=== PATIENT | male | born 1960 | race Caucasian/White ===

== ENCOUNTER 2020-02-18 07:15 | Outpatient (CLI) | payer BC, SELFPAY ==
[2020-02-18 07:59] LABS: Hemoglobin A1C 7.3 % (<5.7)
[2020-02-18 08:00] LABS: Alanine Aminotransferase 24 U/L (4-50); Albumin Level 4.2 g/dL (3.5-5.1); Alkaline Phosphatase 123 U/L (38-126); Anion Gap 7 mmol/L (8-16); Aspartate Amino Transferase 20 U/L (17-59); Bilirubin,Total 0.7 mg/dL (0.2-1.3); Blood Urea Nitrogen 18 mg/dL (9-20); Calcium 8.9 mg/dL (8.4-10.2); Carbon Dioxide 25 mmol/L (22-30); Chloride 106 mmol/L (98-107); Cholesterol 137 mg/dL (0-200); Estimated Glomerular Filt Rate > 60; Glucose 183 mg/dL (75-110); HDL Direct 38 mg/dL; Potassium 4.6 mmol/L (3.4-5.0); Sodium 138 mmol/L (137-145); Triglycerides 182 mg/dL (<150)
[2020-02-18 08:11] LABS: LDL Cholesterol Direct 77 mg/dL
[2020-02-18 08:16] LABS: Creatinine Urine 54.8 mg/dL
[2020-02-18 08:31] LABS: Prostate Specific Antigen 0.2 ng/mL (< OR = 4.0)
[2020-02-18 09:14] LABS: Microalbumin Urine Random > 1140.0 mg/L (0-16.7)
== END 2020-02-18 07:16 | disposition home or self-care (01) ==
PROVIDERS: PCP Internal Medicine; Visit Provider Internal Medicine
DX: E78.5 Hyperlipidemia, unspecified (principal); I10 Essential (primary) hypertension; Z79.899 Other long term (current) drug therapy; Z12.5 Encounter for screening for malignant neoplasm of prostate; E11.9 Type 2 diabetes mellitus without complications
CPT/HCPCS: 36415; 80053; 80061; 82043; 83036; 84153

== ENCOUNTER 2020-05-22 12:34 | Emergency (ER) | payer BC, SELFPAY ==
[2020-05-22 12:38] VITALS: BP 151/81; PULSE 87; RESP 16; TEMP 36; O2SAT 100
--- NOTE | 2020-05-22 12:46 | ED.BACK ---
HPI - Back Pain/Injury General Chief Complaint: Back Pain/Injury Stated Complaint: lower back pain Time Seen by Provider: 05/22/20 12:45 History of Present Illness HPI Narrative: 59 yo male w/ htn, hyperlipidemia, DM presents to the ED with thoracic back pain. He has had back pain for the past few days. Started after doing some heavy lifting at work. Worse this morning. Tried tylenol without resolution. No weakness, numbness, fever, trauma, dysuria, hematuria. Related Data Home Medications Medication Instructions Recorded Confirmed atorvastatin 80 mg tablet 80 mg PO DAILY 07/03/19 02/19/20 empagliflozin 12.5 mg-metformin ER 1 tablet PO DAILY 07/03/19 02/19/20 1,000 mg tablet,extended rel 24 hr Allergies Allergy/AdvReac Type Severity Reaction Status Date / Time No Known Allergies Allergy Verified 02/19/20 07:46 Review of Systems Review of Systems: All systems reviewed & are unremarkable except as noted in HPI and below Constitutional: Constitutional: Denies chills and Denies fever(s) Cardiovascular: Cardiovascular: Denies chest pain Respiratory: Respiratory: Denies dyspnea Gastrointestinal: Gastrointestinal: Denies abdominal pain, Denies nausea and Denies vomiting Genitourinary: Genitourinary: Denies hematuria, Denies dysuria and Denies urinary frequency Musculoskeletal: Musculoskeletal: Reports back pain Neurologic: Denies numbness and Denies weakness PMFSH Past Medical History Medical History ASHD (arteriosclerotic heart disease) Benign essential hypertension Tinea pedis Type 2 diabetes mellitus with hyperglycemia, without long-term current use of insulin Surgical History Surgical History History of fusion of cervical spine Family History Family History Mother Family history of throat cancer Family history of chronic obstructive pulmonary disease Family history of coronary artery disease Father Family history of coronary artery disease Other Diabetes mellitus Family history of emphysema Social History Social History Smoking status: Never smoker Alcohol intake: current Gender identity (if verbalized by the patient): Male Exam Const: General: no acute distress and alert Nutritional Appearance: well nourished Orientation/consciousness: patient oriented x3 HENMT: Head: normal to inspection Chest: Chest palpation & inspection: tenderness rib (posterior and lateral bilaterally) Resp: Effort & Inspection: normal respiratory effort Auscultation: clear to auscultation bilaterally, no rales, no rhonchi and no wheezes Cardio: Rate: regular rate Rhythm: regular rhythm GI: GI Palp: Yes Soft to palpation and No Tenderness to palpation present (GI) Back/Spine/Pelvis: Other: No midline tenderness Skin: General skin exam: normal color Rashes: no rashes Wounds: no wounds Neuro: General: patient oriented x3, moves all extremities, no focal motor deficits and CN's II-XI intact bilaterally Speech: normal speech Gait exam (Neuro): Normal gait present Extrem: General: normal to inspection Psych: Affect: normal affect Attitude: cooperative Course Vital Signs Vital signs: Vital Signs Temperature 36.0 C L 05/22/20 12:38 Pulse Rate 87 05/22/20 12:38 Respiratory Rate 16 05/22/20 12:38 Blood Pressure 151/81 H 05/22/20 12:38 Pulse Oximetry 100 05/22/20 12:38 Temperature 36.0 C L 05/22/20 12:38 Pulse Rate 78 05/22/20 14:47 Respiratory Rate 16 05/22/20 14:47 Blood Pressure 110/64 05/22/20 14:47 Pulse Oximetry 97 05/22/20 14:47 MDM - Back Pain/Injury MDM Narrative Medical decision making narrative: No red flag symptoms or risk factors requiring emergent imaging. Feeling better after treatment. Differential Diagnosi
[2020-05-22 13:00] VITALS: BP 117/87; PULSE 87; RESP 18; O2SAT 99
[2020-05-22] MEDS: diazePAM INJ (*CRX) 10 MG/2 ML SYRINGE 5 MG IM (13:06)
[2020-05-22] MEDS: KETOROLAC (*BKC) 60 MG/2 ML VIAL IM (13:06)
[2020-05-22 14:00] VITALS: BP 110/64; PULSE 77; RESP 16; O2SAT 99
[2020-05-22 14:47] VITALS: BP 110/64; PULSE 78; RESP 16; O2SAT 97
== END 2020-05-22 14:47 | disposition home or self-care (01) ==
PROVIDERS: Emergency Provider Emergency Medicine; PCP Internal Medicine
DX: M54.6 Pain in thoracic spine (principal); I25.10 Atherosclerotic heart disease of native coronary artery without angina pectoris; I10 Essential (primary) hypertension; E11.9 Type 2 diabetes mellitus without complications; Z98.1 Arthrodesis status; E78.5 Hyperlipidemia, unspecified; Z79.84 Long term (current) use of oral hypoglycemic drugs
CPT/HCPCS: 96372; 99284; J1885; J3360

== ENCOUNTER 2020-07-06 08:59 | Outpatient (CLI) | payer BC, SELFPAY ==
[2020-07-06 09:37] LABS: Alanine Aminotransferase 38 U/L (4-50); Albumin Level 4.4 g/dL (3.5-5.1); Alkaline Phosphatase 92 U/L (38-126); Anion Gap 7 mmol/L (8-16); Aspartate Amino Transferase 34 U/L (17-59); Blood Urea Nitrogen 19 mg/dL (9-20); Calcium 9.6 mg/dL (8.4-10.2); Carbon Dioxide 30 mmol/L (22-30); Chloride 102 mmol/L (98-107); Cholesterol 157 mg/dL (0-200); Estimated Glomerular Filt Rate > 60; Glucose 159 mg/dL (75-110); HDL Direct 42 mg/dL; Potassium 4.6 mmol/L (3.4-5.0); Sodium 139 mmol/L (137-145); Triglycerides 181 mg/dL (<150)
[2020-07-06 09:39] LABS: Hemoglobin A1C 7.5 % (<5.7)
[2020-07-06 09:50] LABS: Creatinine Urine 81.8 mg/dL; LDL Cholesterol Direct 92 mg/dL
[2020-07-06 11:33] LABS: MALB Creatinine Ratio 1159.9 mg/g (0-30); Microalbumin Urine Random 948.8 mg/L (0-16.7)
== END 2020-07-06 09:00 | disposition home or self-care (01) ==
PROVIDERS: PCP Internal Medicine; Visit Provider Nurse Practitioner
DX: E11.65 Type 2 diabetes mellitus with hyperglycemia (principal); E78.2 Mixed hyperlipidemia
CPT/HCPCS: 36415; 80053; 80061; 82043; 83036

== ENCOUNTER 2020-11-06 07:07 | Outpatient (CLI) | payer BC, SELFPAY ==
[2020-11-06 07:45] LABS: Alanine Aminotransferase 23 U/L (4-50); Albumin Level 4.3 g/dL (3.5-5.1); Alkaline Phosphatase 115 U/L (38-126); Anion Gap 7 mmol/L (8-16); Aspartate Amino Transferase 22 U/L (17-59); Bilirubin,Total 0.9 mg/dL (0.2-1.3); Blood Urea Nitrogen 17 mg/dL (9-20); Calcium 9.2 mg/dL (8.4-10.2); Carbon Dioxide 27 mmol/L (22-30); Chloride 104 mmol/L (98-107); Cholesterol 120 mg/dL (0-200); Estimated Glomerular Filt Rate > 60; Glucose 190 mg/dL (75-110); HDL Direct 43 mg/dL; Potassium 4.8 mmol/L (3.4-5.0); Sodium 138 mmol/L (137-145); Triglycerides 109 mg/dL (<150)
[2020-11-06 07:55] LABS: Hemoglobin A1C 7.6 % (<5.7)
[2020-11-06 07:56] LABS: LDL Cholesterol Direct 63 mg/dL
[2020-11-06 08:11] LABS: Prostate Specific Antigen 0.2 ng/mL (< OR = 4.0)
== END 2020-11-06 07:08 | disposition home or self-care (01) ==
LOC: ANHLAB 07:09
PROVIDERS: PCP Internal Medicine; Visit Provider Internal Medicine
DX: E11.65 Type 2 diabetes mellitus with hyperglycemia (principal); I10 Essential (primary) hypertension; E78.5 Hyperlipidemia, unspecified; Z79.899 Other long term (current) drug therapy; Z12.5 Encounter for screening for malignant neoplasm of prostate
CPT/HCPCS: 36415; 80053; 80061; 83036; 84153; G0103

== ENCOUNTER 2021-05-09 06:52 | Outpatient (CLI) | payer OTHER, SELFPAY ==
[2021-05-09 08:14] LABS: Alanine Aminotransferase 25 U/L (4-50); Albumin Level 4.8 g/dL (3.5-5.1); Alkaline Phosphatase 135 U/L (38-126); Anion Gap 10 mmol/L (8-16); Aspartate Amino Transferase 19 U/L (17-59); Bilirubin,Total 0.8 mg/dL (0.2-1.3); Blood Urea Nitrogen 21 mg/dL (9-20); Calcium 9.9 mg/dL (8.4-10.2); Carbon Dioxide 28 mmol/L (22-30); Chloride 101 mmol/L (98-107); Cholesterol 134 mg/dL (0-200); Estimated Glomerular Filt Rate > 60; Glucose 247 mg/dL (65-110); HDL Direct 43 mg/dL; Potassium 4.6 mmol/L (3.4-5.0); Sodium 139 mmol/L (137-145); Triglycerides 114 mg/dL (<150)
[2021-05-09 08:26] LABS: LDL Cholesterol Direct 73 mg/dL
[2021-05-09 10:49] LABS: Hemoglobin A1C 7.7 % (<5.7)
== END 2021-05-09 06:53 | disposition home or self-care (01) ==
PROVIDERS: PCP Internal Medicine; Visit Provider Nurse Practitioner
DX: E78.5 Hyperlipidemia, unspecified (principal); E11.9 Type 2 diabetes mellitus without complications
CPT/HCPCS: 36415; 80053; 80061; 83036

== ENCOUNTER → 2021-07-07 02:23 | Outpatient (CLI) | payer OTHER, SELFPAY ==
[2021-07-08 14:05] LABS: SARS-CoV-2 RNA PCR Negative
== END ==
PROVIDERS: PCP Internal Medicine; Visit Provider Nurse Practitioner
DX: R68.89 Other general symptoms and signs (principal); Z20.822 Contact with and (suspected) exposure to COVID-19
CPT/HCPCS: C9803; U0003; U0005

== ENCOUNTER 2022-01-21 06:34 | Emergency (ER) | payer OTHER, SELFPAY ==
--- NOTE | ~2022-01-21 | XR_ITS ---
XR wrist RT min 3V DATE: 01/21/2022 08:01 INDICATION: Rolled wrist 2 days ago. Pain. TECHNIQUE: 4 views COMPARISON: None FINDINGS: No fracture or dislocation, periosteal reaction or bone destruction. Arterial calcification is noted in the distal forearm. IMPRESSION: No fracture or dislocation Reviewed, dictated and finalized at location A. IMPRESSION: No fracture or dislocation
--- NOTE | ~2022-01-21 | XR_ITS ---
XR hand RT min 3V DATE: 01/21/2022 08:00 INDICATION: Rolled wrist 2 days ago; right wrist and hand pain TECHNIQUE: 3 views COMPARISON: None FINDINGS: No fracture or dislocation, periosteal reaction or bone destruction. Mild osteophyte is at the first carpometacarpal and second third metacarpophalangeal joints. No erosi ve change. Arterial calcifications noted in the distal forearm. IMPRESSION: No fracture or dislocation Mild osteoarthritis Reviewed, dictated and finalized at location A.
[2022-01-21 06:35] VITALS: BP 177/92; PULSE 69; RESP 16; TEMP 36.6; O2SAT 100
--- NOTE | 2022-01-21 07:11 | PC.NURSE ---
BOR to RN GO
--- NOTE | 2022-01-21 07:51 | ED.GENADULT ---
HPI - General Adult General Chief complaint: Extremity Injury, Upper Stated complaint: rt hand pain Time Seen by Provider: 01/21/22 06:51 History of Present Illness HPI narrative: 61-year-old male presenting to the emergency department for evaluation of right wrist and right hand pain. Patient states on Sunday he was attempting to get off the ground and push himself off the ground using a closed fist of the right hand. Patient states he felt something pop in his hand and wrist. Patient has been taking qint-boj-vseywte medications for this but states that the pain has continued to worsen. Patient denies any other pain or injury. Related Data Allergies Allergy/AdvReac Type Severity Reaction Status Date / Time No Known Allergies Allergy Verified 01/21/22 06:39 Review of Systems Review of Systems: CONSTITUTIONAL: Denies fever, chills, or sweats. EYES: Denies visual changes, redness, or discharge. ENT: Denies rhinorrhea, congestion, sore throat, or otalgia. CARDIOVASCULAR: Denies chest pain, palpitations, or edema. RESPIRATORY: Denies cough or dyspnea. GASTROINTESTINAL: Denies abdominal pain, nausea, vomiting, or diarrhea. GENITOURINARY: Denies dysuria or hematuria. SKIN: Denies rash or itching. MUSCULOSKELETAL: See HPI NEUROLOGIC: Denies headache, numbness, or weakness. PSYCHIATRIC: Denies anxiety or depression. [facility] Past Medical History Medical History ASHD (arteriosclerotic heart disease) Benign essential hypertension Tinea pedis Type 2 diabetes mellitus with hyperglycemia, without long-term current use of insulin Surgical History Surgical History History of fusion of cervical spine Family History Family History (System 07/28/20 @ 14:27 by Yanira Bond) Mother Family history of throat cancer Family history of chronic obstructive pulmonary disease Family history of coronary artery disease Father Family history of coronary artery disease Other Diabetes mellitus Family history of emphysema Social History Social History (Updated 05/19/21 @ 07:25 by Rosalva Palencia CNA) Smoking status: Never smoker Second hand tobacco smoke exposure: No Alcohol intake: current Alcohol use details: Social Substance use: never Substance use type: does not use Gender identity (if verbalized by the patient): Male Exam Narrative: APPEARANCE: Well appearing, no pain, no distress, well-nourished. HEAD: normocephalic, atraumatic. EYES: PERRLA/EOMI, conjunctivae clear. NOSE: Normal no drainage NECK: Supple. No adenopathy, no masses. RESPIRATORY: Airway patent, respirations nonlabored. Clear to auscultation bilaterally, no rales, rhonchi, wheezing. CARDIOVASCULAR: Regular rate and rhythm without murmurs rubs or gallops. ABDOMINAL: Soft, nontender, nondistended, normal bowel sounds MUSCULOSKELETAL: Moves all extremities. Tenderness to right hand/ right wrist. No deformity, no ecchymosis, neurovascular intact NEURO: Alert. Cranial nerves II through XII intact. Grossly intact SKIN: Warm, dry. Normal Color PSYCHIATRIC: Normal affect/mood. Course Vital Signs Vital signs: Vital Signs Temperature 97.8 F 01/21/22 06:35 Pulse Rate 01/21/22 06:35 Respiratory Rate 01/21/22 06:35 Blood Pressure 177/92 H 01/21/22 06:35 Pulse Oximetry 100 01/21/22 06:35 Oxygen Delivery Room Air 01/21/22 06:35 Temperature 97.8 F 01/21/22 06:35 Pulse Rate 01/21/22 06:35 Respiratory Rate 01/21/22 06:35 Blood Pressure 177/92 H 01/21/22 06:35 Pulse Oximetry 100 01/21/22 06:35 Oxygen Delivery Room Air 01/21/22 06:35 Medical Decision Making Vital Signs Vital Signs: Vital Signs Temperature 97.8 F 01/21/22 06:35 Pulse Rate 69 01/21/22 06:35 Respiratory Rate 01/21/22 06:35 Blood Pressure 177/92 H 01/21/22 06:35 Pulse Oximetry 100 01/21/22 06
== END 2022-01-21 09:59 | disposition home or self-care (01) ==
PROVIDERS: Emergency Provider Emergency Medicine; PCP Internal Medicine
DX: S69.91XA Unspecified injury of right wrist, hand and finger(s), initial encounter (principal); I25.10 Atherosclerotic heart disease of native coronary artery without angina pectoris; I10 Essential (primary) hypertension; E11.9 Type 2 diabetes mellitus without complications; M19.041 Primary osteoarthritis, right hand; Z79.82 Long term (current) use of aspirin; Z79.84 Long term (current) use of oral hypoglycemic drugs; X50.9XXA Other and unspecified overexertion or strenuous movements or postures, initial encounter
CPT/HCPCS: 73110; 73130; 99283

== ENCOUNTER 2022-02-15 07:16 | Outpatient (CLI) | payer OTHER, SELFPAY ==
[2022-02-15 08:08] LABS: Hemoglobin A1C 8.5 % (<5.7)
[2022-02-15 08:12] LABS: Alanine Aminotransferase 26 U/L (6-50); Albumin Level 4.2 g/dL (3.5-5.1); Alkaline Phosphatase 126 U/L (38-126); Anion Gap 10 mmol/L (8-16); Aspartate Amino Transferase 20 U/L (17-59); Blood Urea Nitrogen 21 mg/dL (9-20); Calcium 9.1 mg/dL (8.4-10.2); Carbon Dioxide 21 mmol/L (22-30); Chloride 102 mmol/L (98-107); Cholesterol 134 mg/dL (0-200); Estimated Glomerular Filt Rate > 60; Glucose 216 mg/dL (65-110); HDL Direct 38 mg/dL; Potassium 4.8 mmol/L (3.4-5.0); Sodium 133 mmol/L (137-145); Triglycerides 190 mg/dL (<150)
[2022-02-15 08:23] LABS: LDL Cholesterol Direct 63 mg/dL
[2022-02-15 08:36] LABS: Creatinine Urine 53.3 mg/dL
[2022-02-15 08:41] LABS: Prostate Specific Antigen 0.3 ng/mL (< OR = 4.0)
[2022-02-15 09:23] LABS: MALB Creatinine Ratio 818.6 mg/g (0-30); Microalbumin Urine Random 436.3 mg/L (0-16.7)
== END 2022-02-15 07:17 | disposition home or self-care (01) ==
LOC: ANHLAB 07:17
PROVIDERS: PCP Internal Medicine; Visit Provider Internal Medicine
DX: E11.65 Type 2 diabetes mellitus with hyperglycemia (principal); I10 Essential (primary) hypertension; E78.5 Hyperlipidemia, unspecified; Z12.5 Encounter for screening for malignant neoplasm of prostate
CPT/HCPCS: 36415; 80053; 80061; 82043; 83036; 84153; G0103

== ENCOUNTER 2022-02-23 10:33 | Outpatient (CLI) | payer OTHER, SELFPAY ==
--- NOTE | ~2022-02-23 | CT_ITS ---
EXAMINATION: CT abdomen pelvis wo con DATE: 02/23/2022 11:03 INDICATION: Right lower quadrant pain TECHNIQUE: Computed tomography (CT) of the abdomen and pelvis was performed without intravenous contr ast. The dose-length product was 768.61 mGy-cm. Automated exposure control and iterative reconstructi on technique were employed. COMPARISON: None. FINDINGS: There is calcified granuloma left lower lobe. No significant pleural or pericardial effusio n. Heart size normal. No significant vascular abnormality. There is atherosclerosis. No lymphadenopat hy. There are calcified granulomas of the liver. The spleen, pancreas, adrenal glands and kidneys are unr emarkable. No free air or free fluid. Nonobstructive bowel pattern. Normal appendix. Bladder is unrem arkable. No acute osseous abnormality. Mild lumbar spondylosis. IMPRESSION: 1. No acute abdominal abnormality. Reviewed, dictated and finalized at location B.
== END 2022-02-23 10:34 | disposition home or self-care (01) ==
PROVIDERS: PCP Internal Medicine; Visit Provider Internal Medicine
DX: R10.30 Lower abdominal pain, unspecified (principal)
CPT/HCPCS: 74176

== ENCOUNTER 2022-02-28 22:21 | Emergency (ER) | payer OTHER, SELFPAY ==
--- NOTE | ~2022-02-28 | CT_ITS ---
. EXAMINATION: CT thoracic lumbar wo con DATE: 03/01/2022 04:25 INDICATION: Back pain. TECHNIQUE: Computed tomography (CT) of the thoracic and lumbar spine was performed without intravenou s contrast. Automated exposure control and iterative reconstruction technique were employed. The dose -length product was 1591.00 mGy-cm. COMPARISON: None FINDINGS: CT THORACIC SPINE: There is 7 degrees dextrocurvature of thoracic spine. There are changes of anterio r fusion procedure from C5 to C7 with healed interbody bone graft and anterior plate and screws. Ther e is mild chronic anterior wedging of T7 and T12 vertebral bodies. There is severely decreased disc h eight at C7-T1 and mildly decreased disc height at many thoracic levels. There is multilevel mild fac et joint osteoarthritis. On the right, there is severe neural foraminal stenosis at C7-T1 and mild ne ural foraminal stenosis from T7-T8 through T9-T10. On the left, there is mild neural foraminal stenos is at C7-T1, T4-T5, and T9-T10, and moderate neural foraminal stenosis at T10-T11. There is mild cent ral canal stenosis at T7-T8 and T11-T12. CT LUMBAR SPINE: Bone alignment is normal. There is mild chronic anterior wedging of L1 vertebral bod y. There is mildly decreased disc height at L3-L4. The following disc levels are specifically discuss ed: L1-L2: The disc does not extend beyond the endplate margin. There is mild bilateral facet joint osteo arthritis. There is no neural foraminal stenosis. There is no central canal stenosis. L2-L3: There is a left foraminal protrusion. There is mild bilateral facet joint osteoarthritis. Ther e is mild left neural foraminal stenosis. There is no central canal stenosis. L3-L4: The disc is bulging. There is severe bilateral facet joint osteoarthritis. There is mild bilat eral neural foraminal stenosis. There is mild central canal stenosis. L4-L5: The disc is bulging. There is severe bilateral facet joint osteoarthritis. There is mild bilat eral neural foraminal stenosis. There is mild central canal stenosis. L5-S1: The disc is bulging. There is severe right and moderate left facet joint osteoarthritis. There is mild bilateral neural foraminal stenosis. There is no central canal stenosis. IMPRESSION: 1. Severe degenerative disc disease at C7-T1. Mild thoracic and lumbar spondylosis. Reviewed, dictated and finalized at location A. IMPRESSION: 1. Severe degenerative disc disease at C7-T1. Mild thoracic and lumbar spondylo sis.
--- NOTE | ~2022-02-28 | CT_ITS ---
EXAMINATION: CT abdomen pelvis w con DATE: 03/01/2022 04:26 INDICATION: Abdominal pain. Distention. TECHNIQUE: Computed tomography (CT) of the abdomen and pelvis was performed with 100 mL Omnipaque 350 intravenous contrast. Automated exposure control and iterative reconstruction technique were employe d. The dose-length product was 754.40 mGy-cm. COMPARISON: CT abdomen and pelvis 02/23/2022 FINDINGS: The visualized portions of the lung bases demonstrate mild atelectasis. A calcified left tanya ng nodule is consistent with old granulomatous disease. No pleural effusion. The heart size is normal . There are coronary artery calcifications. Median sternotomy wires are noted. Calcifications in the liver consistent with old granulomatous disease. The spleen, pancreas, and adrenal glands are normal. There are cysts in the kidneys measuring up to 12 mm on the left. Bowel malrotation is noted. There are no dilated loops of bowel. The appendix is normal. There are no pathologically enlarged lymph nod es. There is no free intraperitoneal fluid. The bladder is distended. There is mild thoracolumbar spo ndylosis. IMPRESSION: 1. No etiology for the patient's symptoms. Reviewed, dictated and finalized at location A.
[2022-02-28 22:24] VITALS: BP 170/75; PULSE 67; RESP 18; TEMP 36.2; O2SAT 100
[2022-02-28 22:35] LABS: Basophils Percent Auto 0.5 % (0.2-1.2); Eosinophils Absolute Auto 0.3 K/mm3 (0-0.3); Eosinophils Percent Auto 4.6 % (0-4.4); Hematocrit 45.7 % (42.0-52.0); Hemoglobin 15.2 g/dL (14.0-18.0); Immature Granulocyte Absolute 0.06 K/mm3 (0.00-0.031); Lymphocytes Percent Auto 30.9 % (18.3-44.2); Mean Corpuscular HGB Conc 33.3 g/dl (32-36); Mean Corpuscular Hemoglobin 30.5 pg (26-34); Mean Corpuscular Volume 91.6 fl (80-100); Mean Platelet Volume 9.8 fl (7.4-10.4); Monocytes Absolute Auto 0.6 K/mm3 (0.1-0.6); Monocytes Percent Auto 9.1 % (2.6-8.5); Neutrophils Absolute Auto 3.3 K/mm3 (1.3-6.7); Neutrophils Percent Auto 53.9 % (45.5-73.1); Platelet Count Result 144 k/mm3 (150-375); Red Blood Count 4.99 M/mm3 (4.6-6.20); Red Cell Distribution Width 14.1 % (11.5-14.5); White Blood Count 6.2 K/mm3 (4.5-10.0)
[2022-02-28 22:46] LABS: Alanine Aminotransferase 28 U/L (6-50); Albumin Level 4.4 g/dL (3.5-5.1); Alkaline Phosphatase 102 U/L (38-126); Anion Gap 11 mmol/L (8-16); Aspartate Amino Transferase 26 U/L (17-59); Bilirubin,Total 1.2 mg/dL (0.2-1.3); Blood Urea Nitrogen 18 mg/dL (9-20); Calcium 9.5 mg/dL (8.4-10.2); Carbon Dioxide 25 mmol/L (22-30); Chloride 98 mmol/L (98-107); Estimated CRCL calculation 57 ml/min; Estimated Glomerular Filt Rate > 60; Glucose 178 mg/dL (65-110); Lipase 137 U/L (23-300); Potassium 4.5 mmol/L (3.4-5.0); Sodium 134 mmol/L (137-145)
[2022-03-01 02:07] VITALS: BP 126/77; PULSE 69; RESP 18; O2SAT 98
--- NOTE | 2022-03-01 02:15 | ED.BACK ---
HPI - Back Pain/Injury General Chief Complaint: Back Pain/Injury <Roxann Ferrer MD - Last Filed: 03/01/22 06:30> Stated Complaint: back pain <Roxann Ferrer MD - Last Filed: 03/01/22 06:30> Time Seen by Provider: 03/01/22 02:15 <Roxann Ferrer MD - Last Filed: 03/01/22 06:30> Source: patient <Roxann Ferrer MD - Last Filed: 03/01/22 06:30> Mode of arrival: ambulatory <Roxann Ferrer MD - Last Filed: 03/01/22 06:30> Limitations: no limitations <Roxann Ferrer MD - Last Filed: 03/01/22 06:30> History of Present Illness HPI Narrative: Patient is a 61-year-old male with a history of hypertension, hyperlipidemia, diabetes presenting to the emergency department for evaluation of middle back pain, abdominal pain and distention. Pain is described as aching in nature located in the lower abdomen as well as middle back. Patient denies chest pain, cough, shortness of breath. Patient states pain has been present over the past 3 weeks. Patient denies any inciting event, fall or injury. Patient states he was seen by his primary care physician and had recent imaging done which was negative. Patient also reports abdominal pain and distention. Pain is in the right lower abdomen, aching in nature. Patient reports constipation and abdominal distention as well. Patient with negative CT scan on 02/23/2022. <Roxann Ferrer MD - Last Filed: 03/01/22 06:30> Related Data Allergies/Adverse Reactions: Allergies Allergy/AdvReac Type Severity Reaction Status Date / Time No Known Allergies Allergy Verified 03/01/22 02:05 <Roxann Ferrer MD - Last Filed: 03/01/22 06:30> Review of Systems Review of Systems: CONSTITUTIONAL: Denies fever, chills, or sweats. EYES: Denies visual changes, redness, or discharge. ENT: Denies rhinorrhea, congestion, sore throat, or otalgia. CARDIOVASCULAR: Denies chest pain, palpitations, or edema. RESPIRATORY: Denies cough or dyspnea. GASTROINTESTINAL: Patient reports abdominal pain, distention, denies nausea, vomiting, reports constipation GENITOURINARY: Denies dysuria or hematuria. SKIN: Denies rash or itching. MUSCULOSKELETAL: Patient reports middle and lower back pain NEUROLOGIC: Denies headache, numbness, or weakness. 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 EYES: PERRLA and EOMI. ENT: Nares clear, no rhinorrhea or epistaxis. Mucous membranes moist. NECK: Supple. CHEST: No respiratory distress, breathing even and non labored HEART: Regular rate, sinus rhythm ABDOMEN: Patient with distention and protuberance, mildly tender throughout, most tender in the right lower quadrant without rebound, rigidity or guarding. No flank tenderness bilaterally. Large ventral hernia. No ecchymosis, erythema or induration on exam. Thorax: Positive midline thoracic and lumbar tenderness on exam, no step-offs or deformities, no ecchymosis EXTREMITIES: Normal range of motion. No edema. SKIN: Warm, dry, no rash. NEURO:No focal deficits. Alert and oriented x3 <Roxann Ferrer MD - Last Filed: 03/01/22 06:30> Course Course Emergency Course: Patient signed out to me by Dr. Ferrer pending CT result. CT abdomen pelvis shows incidental midgut malrotation without any acute findings patient CT T and L-spine not concerning for fracture or spinal canal involvement. Patient states he feels better. He was able to urinate with improvement of pelvic sensation. Patient states he i
[2022-03-01 02:19] LABS: Appearance Urine Clear (Clear); Bilirubin Urine Negative (Negative); Blood Urine Negative (Negative); Color Urine Yellow (Yellow); Glucose Urine UA 3+ mg/dL (Negative); Ketones Urine Negative (Negative); Leukocyte Esterase Ur Negative LEU/UL (Negative); Mucus Urine Rare /lpf; Nitrate Urine Negative (Negative); Protein Urine 1+ mg/dL (Negative); RBC Urine 0-2 /hpf (0-2); Urobilinogen Urine 0.2 mg/dL (<2.0); WBC Urine 0-3 /hpf; pH Urine 6.5 (5.0-9.0)
[2022-03-01 02:20] LABS: Add Urine Microscopic? YES
[2022-03-01 03:34] VITALS: BP 126/77; PULSE 68; RESP 18; O2SAT 99
[2022-03-01 04:00] VITALS: BP 138/79; PULSE 69; RESP 16; O2SAT 99
[2022-03-01] MEDS: ONDANSETRON INJ 4 MG/2 ML VIAL IV PUSH (04:00)
[2022-03-01] MEDS: SODIUM CHLORIDE 0.9% IV 1,000 ML 999 ML IV CONT (04:00)
[2022-03-01] MEDS: MORPHINE SULFATE (*CRX) 4 MG/ML INJ IV PUSH (04:01)
[2022-03-01 04:30] VITALS: BP 133/83; PULSE 67; RESP 18; O2SAT 99
[2022-03-01 05:00] VITALS: BP 124/83; PULSE 62; RESP 16; O2SAT 98
== END 2022-03-01 07:20 | disposition home or self-care (01) ==
PROVIDERS: Emergency Provider Emergency Medicine; PCP Internal Medicine
DX: M54.6 Pain in thoracic spine (principal); R10.31 Right lower quadrant pain; I10 Essential (primary) hypertension; E78.5 Hyperlipidemia, unspecified; E11.9 Type 2 diabetes mellitus without complications; Z79.82 Long term (current) use of aspirin; F17.200 Nicotine dependence, unspecified, uncomplicated; Z79.84 Long term (current) use of oral hypoglycemic drugs; M50.33 Other cervical disc degeneration, cervicothoracic region; M47.816 Spondylosis without myelopathy or radiculopathy, lumbar region
CPT/HCPCS: 36415; 72128; 72131; 74177; 80053; 81001; 83690; 85025; 96361; 96374; 96375; 99284; J2270; J2405; J7030; Q9967

== ENCOUNTER 2022-10-07 13:10 | Emergency (ER) | payer OTHER, SELFPAY ==
[2022-10-07] VITALS (13 sets, daily range): BP systolic 112–188; BP diastolic 59–99; PULSE 68–94; RESP 13–20; TEMP 36.4; O2SAT 96–100
[2022-10-07] MEDS: ONDANSETRON INJ 4 MG/2 ML VIAL IV PUSH (13:47)
[2022-10-07] MEDS: FAMOTIDINE 20 MG/2 ML VIAL IV PUSH (13:48)
[2022-10-07] MEDS: methylPREDNISolone SOD SUCC 125 MG VIAL IV PUSH (13:48)
[2022-10-07] MEDS: diphenhydrAMINE HCl INJ 50 MG/ML VIAL 25 MG IV PUSH (13:48)
[2022-10-07] MEDS: EPINEPHrine HCL INJ 1 MG/ML AMPUL 0.3 MG IM (13:49)
--- NOTE | 2022-10-07 14:24 | ED.ALLEREA ---
HPI - Allergic Reaction General Chief complaint: Allergic Reaction <RENU Elder Last Filed: 10/07/22 16:54> Stated complaint: upper lip swelling - on Lisinopril <RENU Elder Last Filed: 10/07/22 16:54> Time Seen by Provider: 10/07/22 13:27 <RENU Elder Last Filed: 10/07/22 16:54> Source: patient <RENU Elder Last Filed: 10/07/22 16:54> Mode of arrival: ambulatory <RENU Elder Last Filed: 10/07/22 16:54> Limitations: no limitations <RENU Elder Last Filed: 10/07/22 16:54> History of Present Illness HPI narrative: Patient is a 61-year-old male who presents to the ED with report of upper lip swelling. Patient reports he was eating shrimp and chicken at [employer] for lunch today approximately 1 hour prior to arrival when he noticed tingling in his upper lip. He went to the bathroom and noticed that his upper lip was swollen. He then decided to come to the ED. Swelling has continued to increase. Patient denies any known allergy to chicken or shrimp. He states he eats this same meal 4-5 times per week. He denies any other known allergic triggers. Denies swelling of lower lip or tongue. Denies difficulty breathing or swallowing. Denies any rash or itching. He does feel slightly nauseous. Patient is on lisinopril and has been for several years for hypertension. <RENU Elder Last Filed: 10/07/22 16:54> Related Data Allergies/adverse reactions: Allergies Allergy/AdvReac Type Severity Reaction Status Date / Time lisinopril Allergy angioedema Verified 10/07/22 16:48 Iodinated Contrast Media AdvReac Nausea and Verified 10/07/22 13:33 Vomiting <RENU Elder Last Filed: 10/07/22 16:54> Review of Systems Review of Systems: CONSTITUTIONAL: Denies fever, chills, or sweats. ENT: See HPI. CARDIOVASCULAR: Denies chest pain. RESPIRATORY: Denies cough or dyspnea. GASTROINTESTINAL: See HPI. SKIN: Denies rash or itching. NEUROLOGIC: Denies headache or weakness. <Lori Sierra PA-C - Last Filed: 10/07/22 16:54> All systems reviewed & are unremarkable except as noted in HPI and below <Lori Sierra PA-C - Last Filed: 10/07/22 16:54> [facility] Past Medical History Medical History: Medical History ASHD (arteriosclerotic heart disease) Benign essential hypertension Tinea pedis Type 2 diabetes mellitus with hyperglycemia, without long-term current use of insulin <Lori Sierra PA-C - Last Filed: 10/07/22 16:54> Surgical History Surgical History: Surgical History History of fusion of cervical spine History of hernia repair Recurrent ventral hernia repair w/mesh w/Dr. Calhoun 12/13/2012; bilateral inguinal hernia repair w/ 11/27/12; recurrent ventral hernia repair Dr. Goldman 2002 <Lori Sierra PA-C - Last Filed: 10/07/22 16:54> Family History Family History: Family History Mother Family history of throat cancer Family history of chronic obstructive pulmonary disease Family history of coronary artery disease Father Family history of coronary artery disease Family history of emphysema Sibling Diabetes mellitus Heart disease Unknown Hypertension Kidney disease <Lori Sierra PA-C - Last Filed: 10/07/22 16:54> Social History Social History: Social History Social History: caffeine use: drinks iced tea daily Smoking status: Never smoker Second hand tobacco smoke exposure: No Alcohol intake: current Alcohol use details: Beer socially Substance use: never Substance use type: does not use Lack of Transportation: No Lack of Food:
== END 2022-10-07 17:08 | disposition home or self-care (01) ==
PROVIDERS: Emergency Provider Physician Assistant; PCP Internal Medicine
DX: T78.3XXA Angioneurotic edema, initial encounter (principal); E11.9 Type 2 diabetes mellitus without complications; I10 Essential (primary) hypertension
CPT/HCPCS: 96372; 96374; 96375; 99284; J0171; J1200; J2405; J2930

== ENCOUNTER 2023-06-07 03:07 | Day surgery (SDC) | payer OTHER, SELFPAY ==
[2023-06-06 13:51] VITALS: BMI 26.6
[2023-06-07] VITALS (13 sets, daily range): BP systolic 130–156; BP diastolic 71–83; PULSE 63–79; RESP 12–20; TEMP 36.6–36.7; O2SAT 95–98; BMI 26.5
[2023-06-07 09:31] LABS: Basophils Absolute Auto 0.1 K/mm3 (0.0-0.1); Basophils Percent Auto 0.8 % (0.2-1.2); Eosinophils Absolute Auto 0.1 K/mm3 (0-0.3); Hemoglobin 16.2 g/dL (14.0-18.0); Immature Granulocyte Absolute 0.05 K/mm3 (0.00-0.031); Immature Granulocyte Percent A 0.8 % (0-0.5); Immature Platelet Fraction Pct 3.2 % (0.9-11.2); Lymphocytes Absolute Auto 1.41 K/mm3 (0.9-3.2); Lymphocytes Percent Auto 22.1 % (18.3-44.2); Mean Corpuscular HGB Conc 34.5 g/dl (32-36); Mean Corpuscular Hemoglobin 30.7 pg (26-34); Mean Corpuscular Volume 89.2 fl (80-100); Mean Platelet Volume 10.2 fl (7.4-10.4); Monocytes Absolute Auto 0.5 K/mm3 (0.1-0.6); Monocytes Percent Auto 7.5 % (2.6-8.5); Neutrophils Absolute Auto 4.3 K/mm3 (1.3-6.7); Neutrophils Percent Auto 66.8 % (45.5-73.1); Platelet Count Result 127 k/mm3 (150-375); Red Blood Count 5.27 M/mm3 (4.6-6.20); Red Cell Distribution Width 13.6 % (11.5-14.5); White Blood Count 6.4 K/mm3 (4.5-10.0)
[2023-06-07 09:41] LABS: Anion Gap 11 mmol/L (8-16); Blood Urea Nitrogen 20 mg/dL (9-20); Calcium 9.2 mg/dL (8.4-10.2); Carbon Dioxide 20 mmol/L (22-30); Chloride 107 mmol/L (98-107); Estimated CRCL calculation 88 ml/min; Estimated Glomerular Filt Rate > 60; Glucose 208 mg/dL (65-110); Potassium 4.8 mmol/L (3.4-5.0); Sodium 138 mmol/L (137-145)
--- NOTE | 2023-06-07 10:36 | WPDMODSED ---
Moderate Sedation Note-Pt Data Patient Data Diagnosis: Coronary artery disease Present Complaint: Coronary artery disease Procedure to be performed/Plan: Coronary angiography, left heart cath, bypass graft angiography, +/- PCI Allergies Allergy/AdvReac Type Severity Reaction Status Date / Time lisinopril Allergy Severe angioedema Verified 06/06/23 13:48 Home Medications Medication Instructions Recorded Confirmed Type aspirin 81 mg tablet,delayed 81 mg PO DAILY #90 tabs 02/19/20 06/07/23 Rx release (Aspir-) acetaminophen 500 mg capsule 500 mg PO Q8H PRN pain #30 caps 03/01/22 06/06/23 Rx empagliflozin 25 mg-metformin ER 1 tablet PO DAILY #90 ea 11/14/22 06/06/23 Rx 1,000 mg tablet,extended release 24hr (Synjardy XR) glipizide 10 mg tablet 10 mg PO BID #180 tabs 11/14/22 06/06/23 Rx sitagliptin phosphate 100 mg 100 mg PO DAILY #90 tabs 11/28/22 06/06/23 Rx tablet (Januvia) amlodipine 10 mg tablet 10 mg PO DAILY #90 tabs 02/22/23 06/07/23 Rx atorvastatin 80 mg tablet 80 mg PO DAILY 06/06/23 06/06/23 History ezetimibe 10 mg tablet 10 mg PO DAILY 06/06/23 06/06/23 History Current Medications: Active Medications Sodium Chloride (Normal Saline Iv) 500 mls @ 100 mls/hr IV CONT .Q5H TUTU Sedation/Anesthesia: No previous sedation/anesthesia problems (including family history). [facility] Past Medical History Medical History ASHD (arteriosclerotic heart disease) Benign essential hypertension Tinea pedis Type 2 diabetes mellitus with hyperglycemia, without long-term current use of insulin Surgical History Surgical History History of fusion of cervical spine History of hernia repair Recurrent ventral hernia repair w/mesh w/Dr. Calhoun 12/13/2012; bilateral inguinal hernia repair w/ 11/27/12; recurrent ventral hernia repair Dr. Goldman 2002 Family History Family History Mother Family history of throat cancer Family history of chronic obstructive pulmonary disease Family history of coronary artery disease Father Family history of coronary artery disease Family history of emphysema Sibling Diabetes mellitus Heart disease Unknown Hypertension Kidney disease Social History Social History Social History: caffeine use: drinks iced tea daily Smoking status: Never smoker Second hand tobacco smoke exposure: Yes Alcohol intake: never Drinks per week: 2 Alcohol use details: Beer socially Substance use: never Substance use type: does not use Lack of Transportation: No Lack of Food: Never True Current Housing: I Have Housing Concerned About Future Housing: No Difficulty Paying Gas/Electric Bills: No Difficulty Paying for Meds: No Currently Unemployed: No Education: High School Diploma/GED Difficulty w/ Childcare or Family Care: No Living arrangements: with family Occupation/Education: occupation 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[employer] Gender identity (if verbalized by the patient): Male Spiritual care concerns: No Mod Sed Physical Exam Physical Exam Pre Procedural Exam: Normal: Appearance, Lungs, Heart Rate, Heart Rhythm, Neuro Exam, Abdomen, Extremities and Skin Hours since solid foods: 12 Hours since liquid intake: 8 Mallampati Classification: class III Internal Medicine - PN: Obj Da Vital Signs Vital Signs: Vital Signs - 24 hr 06/07/23 09:33 Temperature 36.6 C Pulse Rate 70 Respiratory Rate 15 Blood Pressure 156/80 H Pulse Oximetry 97 Oxygen Delivery Room Air Meds/Results Medications: Active Medications Generic Name Dose Route Start Last Admin Trade Name Freq PRN Reason Stop Dose Admin Sodium Chloride 500 mls @ 100 mls/hr 06/07/23 08:30 Normal Saline Iv IV CONT .Q5H TUTU Labs 06/07/23 09:
--- NOTE | 2023-06-07 11:31 | WPDCARDPROC ---
Cardiac Cath Procedure Note Date of procedure:: 06/07/23 Performing physician:: CATHETERIZATION LABORATORY REPORT Procedure Date: 06/07/2023 Fibre Optic Cable Splicer: Cate Morris M.D., [facility]? Referring Physician: Dimitrios Pearson M.D. ? Anesthesia: Versed and Fentanyl were ordered and given in my presence at 10:54, procedure ended at 11:25. Supervision of nurse monitored moderate sedation with Versed and Fentanyl was provided for 31 minutes. Total of Versed 1mg and Fentanyl 25mcg were administered by the Manager Of Network RN Kelly Payton. Pre-op Diagnosis: Coronary artery disease Post-op Diagnosis: 1. Severe [place] two vessel coronary artery disease 2. Patent PAVON to LAD bypass graft 3. Patent left radial artery to OM bypass graft 4. Left ventricular end-diastolic pressure of 16mmHg Procedure(s): 1. Moderate sedation 2. Ultrasound guided access of the right common femoral artery 3. Coronary angiography 4. Bypass graft angiography 5. Left heart cath Access Site: Right common femoral artery Brief History and Clinical Indications: Patient is a 62 year old male with CAD s/p CABG who is referred for [facility] for abnormal stress test. All risks, benefits and alternatives to left heart catheterization with or without percutaneous coronary intervention was discussed at length with the patient. Risk of complications including but not limited to bleeding, infection, arrhythmia, stroke, worsening kidney function, blood loss, groin hematoma, limb loss, emergency coronary artery bypass grafting, and even were discussed with the patient and all questions were answered. The patient understood and wished to proceed. Time out called, patient name, date of , medical record number, allergies, procedure performed, identify Fibre Optic Cable Splicer, patient and staff member concurred with accurate data, procedure carried on. Findings: LEFT HEART CATHETERIZATION FINDINGS: 1. Left main: The left main coronary artery is patent without any significant obstructive disease. 2. Left anterior descending: The LAD is GEOTHERMAL PRODUCTION MANAGER immediately distal to the bifurcation of the first diagonal branch. The first diagonal branch is a very small caliber vessel with diffuse disease. 3. Left circumflex: The left circumflex artery is GEOTHERMAL PRODUCTION MANAGER in its ostium. 4. Right coronary artery: The RCA has mild diffuse disease without any significant obstructive angiographic disease. The RCA is the dominant vessel. 5. Left ventricle: A. End-diastolic pressure 16 mmHg. B. LV gram deferred. C. No significant gradient across aortic valve on catheter pullback. 6. Bypass graft angiography: A. Patent PAVON to LAD bypass graft. Bypass graft provides both retrograde and antegrade flow to the LAD, which is small caliber at this point. Proximal to the bypass graft anastomosis site, the LAD is diffusely diseased. B. Patent left radial artery to OM bypass graft. Bypass graft provides both retrograde and antegrade flow to OM, retrograde flow fills the distal LCX and another OM branch. Description of Procedure: Informed consent signed and placed in the chart. Patient transferred to high density press laborer room. Prepped and draped in usual sterile fashion. 2% lidocaine in right groin area. Micropuncture needle used to access right common femoral artery with Seldinger technique under fluoroscopic and ultrasound guidance. J wire advanced, micropuncture cannula placed. Right iliofemoral angiogram performed, access confirmed and micropuncture cannula exchanged for 5-FR sheath. 5F FL 4 diagnostic catheter engaged Left Main Coronary Artery. 5F FR 4 diagnostic catheter engaged Right Coronary Artery. 5F FR 4 diagnostic catheter engaged in the left radial artery to OM bypass graft. 5F IM diagnostic catheter engaged in the PAVON to LAD bypass graft. Multiple orthogonal angiogram obtained and reviewed 5F Pigtail diagnostic catheter crossed aortic valve to obtain LVEDP, LV angiogram deferred. Hemostasis was achieved by manual pressu
== END 2023-06-07 17:01 | disposition home or self-care (01) ==
PROVIDERS: PCP Nurse Practitioner; Visit Provider Internal Medicine
PROC: 4A023N7 Measurement of Cardiac Sampling and Pressure, Left Heart, Percutaneous Approach (ICD-10-PCS; CPT 93459; principal; 2023-06-07 10:00)
DX: I25.10 Atherosclerotic heart disease of native coronary artery without angina pectoris (principal); R94.39 Abnormal result of other cardiovascular function study; E11.9 Type 2 diabetes mellitus without complications; I10 Essential (primary) hypertension
CPT/HCPCS: 36415; 80048; 85025; 85055; 93459; C1760; C1769; C1887; C1894; G0269; J1644; J2250; J3010; J7040

== ENCOUNTER 2023-09-04 07:44 | Outpatient (CLI) | payer OTHER, SELFPAY ==
[2023-09-04 08:11] LABS: Alanine Aminotransferase 32 U/L (6-50); Albumin Level 4.3 g/dL (3.5-5.1); Alkaline Phosphatase 118 U/L (38-126); Anion Gap 6 mmol/L (8-16); Aspartate Amino Transferase 28 U/L (17-59); Bilirubin,Total 1.2 mg/dL (0.2-1.3); Blood Urea Nitrogen 18 mg/dL (9-20); Calcium 9.1 mg/dL (8.4-10.2); Carbon Dioxide 26 mmol/L (22-30); Chloride 103 mmol/L (98-107); Cholesterol 108 mg/dL (0-200); Estimated Glomerular Filt Rate > 60; Glucose 224 mg/dL (65-110); HDL Direct 37 mg/dL; Potassium 4.6 mmol/L (3.4-5.0); Sodium 135 mmol/L (137-145); Triglycerides 130 mg/dL (<150)
[2023-09-04 08:20] LABS: Hemoglobin A1C 8.8 % (<5.7)
[2023-09-04 08:22] LABS: LDL Cholesterol Direct 60 mg/dL
[2023-09-04 08:40] LABS: Prostate Specific Antigen 0.3 ng/mL (< OR = 4.0)
== END 2023-09-04 07:45 | disposition home or self-care (01) ==
PROVIDERS: PCP Nurse Practitioner; Visit Provider Nurse Practitioner
DX: E78.5 Hyperlipidemia, unspecified (principal); E11.9 Type 2 diabetes mellitus without complications; Z12.5 Encounter for screening for malignant neoplasm of prostate
CPT/HCPCS: 36415; 80053; 80061; 83036; 84153; G0103

== ENCOUNTER 2023-11-12 06:16 | Day surgery (SDC) | payer OTHER, SELFPAY ==
[2023-10-29 14:00] VITALS: BMI 26.7
[2023-11-12 06:38] VITALS: BMI 26.9
[2023-11-12 06:42] VITALS: BP 141/67; PULSE 69; RESP 18; TEMP 36.6; O2SAT 99
[2023-11-12] MEDS: LACTATED RINGERS 1,000 ML 150 ML IV CONT (06:54)
[2023-11-12 06:58] LABS: Glucose Point of Care 128 mg/dl (65-105)
--- NOTE | 2023-11-12 07:04 | WPDANESEPPF ---
Anes - Initial Pre Proc Eval Procedure: Operation Date: 11/12/23 14:00 Proposed Procedures p Colonoscopy - Ac Porras MD Date/Time: 11/12/23 07:04 Surgeon: Ac Porras MD Pre Op Diagnosis: hx of colon polyps Patient Data Age: 62 Gender: M Height: 1.7 m Weight: 78.1 kg Last Vital Signs Temp 36.6 C 11/12/23 06:42 Pulse 69 11/12/23 06:42 Resp 18 11/12/23 06:42 BP 141/67 H 11/12/23 06:42 Pulse Ox 99 11/12/23 06:42 O2 Del Method Room Air 11/12/23 06:42 Allergies Allergy/AdvReac Type Severity Reaction Status Date / Time lisinopril Allergy Severe angioedema Verified 11/12/23 06:37 Home Medications Medication Instructions Recorded Confirmed Type aspirin 81 mg tablet,delayed 81 mg PO DAILY #90 tabs 02/19/20 10/29/23 Rx release (Aspir-) acetaminophen 500 mg capsule 500 mg PO Q8H PRN pain #30 caps 03/01/22 10/29/23 Rx ezetimibe 10 mg tablet 10 mg PO DAILY 06/06/23 10/29/23 History glipizide 10 mg tablet 10 mg PO BID #180 tabs 07/30/23 10/29/23 Rx amlodipine 10 mg tablet 10 mg PO DAILY #90 tabs 08/06/23 10/29/23 Rx atorvastatin 80 mg tablet 80 mg PO DAILY #90 tabs 08/06/23 10/29/23 Rx empagliflozin 25 mg-metformin ER 1 tablet PO DAILY #90 ea 08/28/23 10/29/23 Rx 1,000 mg tablet,extended release 24hr (Synjardy XR) sitagliptin phosphate 100 mg 100 mg PO DAILY #90 tabs 10/29/23 Rx tablet (Januvia) Laboratory Tests 11/12/23 06:50 POC Capillary Glucose 128 H mg/dl (65-105) Patient hx anesthesia problems: none Family hx anesthesia problems: none Results Review: All pre-operative results and documents have been reviewed as part of the pre-operative evaluation. [facility] Past Medical History Medical History ASHD (arteriosclerotic heart disease) Benign essential hypertension Tinea pedis Type 2 diabetes mellitus with hyperglycemia, without long-term current use of insulin Surgical History Surgical History History of fusion of cervical spine History of hernia repair Recurrent ventral hernia repair w/mesh w/Dr. Calhoun 12/13/2012; bilateral inguinal hernia repair w/ 11/27/12; recurrent ventral hernia repair Dr. Goldman 2002 Family History Family History Mother Family history of throat cancer Family history of chronic obstructive pulmonary disease Family history of coronary artery disease Father Family history of coronary artery disease Family history of emphysema Sibling Diabetes mellitus Heart disease Unknown Hypertension Kidney disease Social History Social History Social History: caffeine use: drinks iced tea daily Smoking status: Never smoker Second hand tobacco smoke exposure: Yes Alcohol intake: current Drinks per week: 1 Alcohol use details: Beer socially Substance use: never Substance use type: does not use Lack of Transportation: No Lack of Food: Never True Current Housing: I Have Housing Concerned About Future Housing: No Difficulty Paying Gas/Electric Bills: No Difficulty Paying for Meds: No Currently Unemployed: No Education: High School Diploma/GED Difficulty w/ Childcare or Family Care: No Living arrangements: alone Occupation/Education: occupation 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
--- NOTE | 2023-11-12 07:23 | PM.HPGS ---
History of Present Illness History of Present Illness Consent: Risks, benefits, and alternatives have been discussed and questions answered. Patient agrees to proceed with procedure. Chief complaint: screening colonoscopy Narrative: Zechariah Coreas Sr. is a 62 year old male here for screening colonoscopy Review of Systems Review of Systems: All systems reviewed & are unremarkable except as noted in HPI and below PMFSH Past Medical History Medical History (Updated 11/12/23 @ 07:24 by Ac Porras MD) ASHD (arteriosclerotic heart disease) Benign essential hypertension Colon cancer screening Tinea pedis Type 2 diabetes mellitus with hyperglycemia, without long-term current use of insulin Surgical History Surgical History History of fusion of cervical spine History of hernia repair Recurrent ventral hernia repair w/mesh w/Dr. Calhoun 12/13/2012; bilateral inguinal hernia repair w/ 11/27/12; recurrent ventral hernia repair Dr. Goldman 2002 Family History Family History Mother Family history of throat cancer Family history of chronic obstructive pulmonary disease Family history of coronary artery disease Father Family history of coronary artery disease Family history of emphysema Sibling Diabetes mellitus Heart disease Unknown Hypertension Kidney disease Social History Social History Social History: caffeine use: drinks iced tea daily Smoking status: Never smoker Second hand tobacco smoke exposure: Yes Alcohol intake: current Drinks per week: 1 Alcohol use details: Beer socially Substance use: never Substance use type: does not use Lack of Transportation: No Lack of Food: Never True Current Housing: I Have Housing Concerned About Future Housing: No Difficulty Paying Gas/Electric Bills: No Difficulty Paying for Meds: No Currently Unemployed: No Education: High School Diploma/GED Difficulty w/ Childcare or Family Care: No Living arrangements: alone Occupation/Education: occupation 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 Gender identity (if verbalized by the patient): Male Spiritual care concerns: No Meds Home Medications and Allergies Home Medications Medication Instructions Recorded Confirmed Type aspirin 81 mg tablet,delayed 81 mg PO DAILY #90 tabs 02/19/20 10/29/23 Rx release (Aspir-) acetaminophen 500 mg capsule 500 mg PO Q8H PRN pain #30 caps 03/01/22 10/29/23 Rx ezetimibe 10 mg tablet 10 mg PO DAILY 06/06/23 10/29/23 History glipizide 10 mg tablet 10 mg PO BID #180 tabs 07/30/23 10/29/23 Rx amlodipine 10 mg tablet 10 mg PO DAILY #90 tabs 08/06/23 10/29/23 Rx atorvastatin 80 mg tablet 80 mg PO DAILY #90 tabs 08/06/23 10/29/23 Rx empagliflozin 25 mg-metformin ER 1 tablet PO DAILY #90 ea 08/28/23 10/29/23 Rx 1,000 mg tablet,extended release 24hr (Synjardy XR) sitagliptin phosphate 100 mg 100 mg PO DAILY #90 tabs 10/29/23 Rx tablet (Januvia) Allergies Allergy/AdvReac Type Severity Reaction Status Date / Time lisinopril Allergy Severe angioedema Verified 11/12/23 06:37 Vital Signs Vital Signs - 24 hr 11/12/23 06:42 Temperature 98 F Pulse Rate 69 Respiratory Rate 18 Blood Pressure 141/67 H Pulse Oximetry 99 Oxygen Delivery Room Air Exam Const: General: comfortable and no acute distress HENMT: Face/Nose/Sinus: Normal nares present Eyes: General: appearance normal, both eyes and all related structures Neck: Neck: no JVD Resp: Auscultation: clear to auscultation bilaterally Cardio: Rate: regular rate Rhythm: regular rhythm GI: Inspection: non-distended GI Palp: Yes Soft to palpation Skin: General skin exam: normal color Neuro: General: gait normal Speech: normal speech Extrem: General: normal
[2023-11-12 07:38] VITALS: BP 108/66; PULSE 66; RESP 16; O2SAT 100
[2023-11-12 07:48] VITALS: BP 134/77; PULSE 67; RESP 20; O2SAT 100
[2023-11-12 07:58] VITALS: BP 139/80; PULSE 64; RESP 16; O2SAT 100
== END 2023-11-12 08:04 | disposition home or self-care (01) ==
PROVIDERS: PCP Nurse Practitioner; Visit Provider Internal Medicine Gastroenterology
PROC: 0DJD8ZZ Inspection of Lower Intestinal Tract, Via Natural or Artificial Opening Endoscopic (ICD-10-PCS; CPT 45378; principal; 2023-11-12 14:00)
DX: Z12.11 Encounter for screening for malignant neoplasm of colon (principal); I25.10 Atherosclerotic heart disease of native coronary artery without angina pectoris; I10 Essential (primary) hypertension; E11.65 Type 2 diabetes mellitus with hyperglycemia; Z79.82 Long term (current) use of aspirin; Z79.84 Long term (current) use of oral hypoglycemic drugs; Z98.890 Other specified postprocedural states; Z98.1 Arthrodesis status; Z86.010 Personal history of colon polyps; Z80.1 Family history of malignant neoplasm of trachea, bronchus and lung; Z82.49 Family history of ischemic heart disease and other diseases of the circulatory system
CPT/HCPCS: 45378; 82948; J2704; J7120

== ENCOUNTER 2024-01-30 19:41 | Emergency (ER) | payer OTHER, SELFPAY ==
--- NOTE | 2024-01-30 19:43 | ED.EXTPRO ---
HPI - Extremity Problem General Chief complaint: Extremity Problem,Nontraumatic Stated complaint: left big toe swollen,painful Time Seen by Provider: 01/30/24 19:41 Source: patient Mode of arrival: ambulatory Limitations: no limitations History of Present Illness HPI Narrative: Zechariah is a 63-year-old male patient presenting to the clinic today with complaints of left big toe pain and swelling that been painful for the past 2-3 days. No known fever or injury. He is diabetic. Denies any open wounds to his feet. No history of gout. Related Data Home Medications Medication Instructions Recorded Confirmed ezetimibe 10 mg tablet 10 mg PO DAILY 06/06/23 01/30/24 Allergies Allergy/AdvReac Type Severity Reaction Status Date / Time lisinopril Allergy Severe angioedema Verified 01/30/24 19:43 Review of Systems Review of Systems: Pertinent positives per HPI. Patient denies any fever, chills, rash, headache, visual changes, dizziness, cough, runny nose, sore throat, shortness of breath, chest pain, palpitations, nausea, vomiting, diarrhea, constipation, abdominal pain, or any urinary issues. [facility] Past Medical History Medical History (Updated 01/30/24 @ 19:54 by Loyd Nath APRN) ASHD (arteriosclerotic heart disease) Benign essential hypertension Colon cancer screening Tinea pedis Type 2 diabetes mellitus with hyperglycemia, without long-term current use of insulin Surgical History Surgical History History of fusion of cervical spine History of hernia repair Recurrent ventral hernia repair w/mesh w/Dr. Calhoun 12/13/2012; bilateral inguinal hernia repair w/ 11/27/12; recurrent ventral hernia repair Dr. Goldman 2002 Family History Family History Mother Family history of throat cancer Family history of chronic obstructive pulmonary disease Family history of coronary artery disease Father Family history of coronary artery disease Family history of emphysema Sibling Diabetes mellitus Heart disease Unknown Hypertension Kidney disease Social History Social History Social History: caffeine use: drinks iced tea daily Smoking status: Never smoker Second hand tobacco smoke exposure: Yes Alcohol intake: current Drinks per week: 1 Alcohol use details: Beer socially Substance use: never Substance use type: does not use Lack of Transportation: No Lack of Food: Never True Current Housing: I Have Housing Concerned About Future Housing: No Difficulty Paying Gas/Electric Bills: No Difficulty Paying for Meds: No Currently Unemployed: No Education: High School Diploma/GED Difficulty w/ Childcare or Family Care: No Living arrangements: alone Occupation/Education: occupation 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 There is no relevant family history pertinent to the patient complaint. Exam Narrative: General: Well-developed, well nourished, in no apparent distress Head: Normocephalic, atraumatic. Cardio: Regular rate and rhythm, s1 and s2 normal, no murmur appreciated. Resp: Clear to auscultation bilaterally, no rhonchi, rales, wheezing or rubs. Musculoskeletal: No deformity, redness and swelling to the proximal joint of the left great toe, tender to palpation over this area, limited range of motion due to pain, no obvious wound or infection, muscle strength strong and equal, peripheral pulse strong, no edema, no cyanosis, normal gait and station Course Course Emergency Course: Portions of this record may have been created with voice recognition software.
[2024-01-30 19:50] VITALS: BP 170/73; PULSE 73; RESP 16; TEMP 37.1; O2SAT 99
== END 2024-01-30 20:00 | disposition home or self-care (01) ==
PROVIDERS: Emergency Provider Nurse Practitioner Family; PCP Nurse Practitioner
DX: M10.9 Gout, unspecified (principal); I25.10 Atherosclerotic heart disease of native coronary artery without angina pectoris; I10 Essential (primary) hypertension; E11.9 Type 2 diabetes mellitus without complications
CPT/HCPCS: 99213; G0463

== ENCOUNTER 2024-06-11 07:12 | Outpatient (CLI) | payer OTHER, SELFPAY ==
[2024-06-11 08:34] LABS: Basophils Percent Auto 0.7 % (0.2-1.2); Eosinophils Absolute Auto 0.2 K/mm3 (0-0.3); Eosinophils Percent Auto 3.2 % (0-4.4); Hematocrit 48.7 % (42.0-52.0); Hemoglobin 16.1 g/dL (14.0-18.0); Immature Granulocyte Absolute 0.05 K/mm3 (0.00-0.031); Immature Granulocyte Percent A 0.9 % (0-0.5); Lymphocytes Absolute Auto 1.49 K/mm3 (0.9-3.2); Lymphocytes Percent Auto 25.4 % (18.3-44.2); Mean Corpuscular HGB Conc 33.1 g/dl (32-36); Mean Corpuscular Hemoglobin 30.3 pg (26-34); Mean Corpuscular Volume 91.5 fl (80-100); Mean Platelet Volume 10.1 fl (7.4-10.4); Monocytes Absolute Auto 0.4 K/mm3 (0.1-0.6); Monocytes Percent Auto 6.8 % (2.6-8.5); Neutrophils Absolute Auto 3.7 K/mm3 (1.3-6.7); Platelet Count Result 148 k/mm3 (150-375); Red Blood Count 5.32 M/mm3 (4.6-6.20); Red Cell Distribution Width 13.3 % (11.5-14.5); White Blood Count 5.9 K/mm3 (4.5-10.0)
[2024-06-11 08:45] LABS: Alanine Aminotransferase 32 U/L (6-50); Albumin Level 4.1 g/dL (3.5-5.1); Alkaline Phosphatase 99 U/L (38-126); Anion Gap 7 mmol/L (4-12); Aspartate Amino Transferase 25 U/L (17-59); Bilirubin,Total 1.1 mg/dL (0.2-1.3); Blood Urea Nitrogen 20 mg/dL (9-20); Calcium 8.8 mg/dL (8.4-10.2); Carbon Dioxide 27 mmol/L (22-30); Chloride 104 mmol/L (98-107); Cholesterol 94 mg/dL (0-200); Estimated Glomerular Filt Rate > 60; Glucose 157 mg/dL (65-110); HDL Direct 40 mg/dL; Potassium 4.4 mmol/L (3.4-5.0); Sodium 138 mmol/L (137-145); Triglycerides 95 mg/dL (<150)
[2024-06-11 08:56] LABS: LDL Cholesterol Direct 36 mg/dL
[2024-06-11 10:29] LABS: Hemoglobin A1C 7.4 % (<5.7)
== END 2024-06-11 07:13 | disposition home or self-care (01) ==
LOC: ANHLAB 07:14
PROVIDERS: PCP Nurse Practitioner Family; Visit Provider Nurse Practitioner Family
DX: E11.65 Type 2 diabetes mellitus with hyperglycemia (principal); I10 Essential (primary) hypertension
CPT/HCPCS: 36415; 80053; 80061; 83036; 85025

== ENCOUNTER 2024-09-16 12:28 | Outpatient (CLI) | payer OTHER, SELFPAY ==
[2024-09-16 12:49] LABS: Basophils Percent Auto 0.5 % (0.2-1.2); Eosinophils Absolute Auto 0.1 K/mm3 (0-0.3); Eosinophils Percent Auto 1.1 % (0-4.4); Hematocrit 50.2 % (42.0-52.0); Immature Granulocyte Absolute 0.07 K/mm3 (0.00-0.031); Immature Granulocyte Percent A 0.8 % (0-0.5); Lymphocytes Absolute Auto 2.46 K/mm3 (0.9-3.2); Mean Corpuscular HGB Conc 33.9 g/dl (32-36); Mean Corpuscular Hemoglobin 29.9 pg (26-34); Mean Corpuscular Volume 88.4 fl (80-100); Mean Platelet Volume 9.6 fl (7.4-10.4); Monocytes Absolute Auto 0.7 K/mm3 (0.1-0.6); Monocytes Percent Auto 8.1 % (2.6-8.5); Neutrophils Absolute Auto 5.4 K/mm3 (1.3-6.7); Neutrophils Percent Auto 61.5 % (45.5-73.1); Platelet Count Result 171 k/mm3 (150-375); Red Blood Count 5.68 M/mm3 (4.6-6.20); White Blood Count 8.8 K/mm3 (4.5-10.0)
[2024-09-16 12:56] LABS: Add Urine Microscopic? YES; Appearance Urine Clear (Clear); Bacteria Urine None Seen /hpf; Bilirubin Urine Negative (Negative); Blood Urine Trace (Negative); Color Urine Yellow (Yellow); Glucose Urine UA 3+ mg/dL (Negative); Ketones Urine Negative (Negative); Leukocyte Esterase Ur Negative LEU/UL (Negative); Nitrate Urine Negative (Negative); Non Pathogenic Casts 0-2; Protein Urine 3+ mg/dL (Negative); RBC Urine 0-2 /hpf (0-2); Specific Grav Ur 1.033 (1.001-1.035); Squamous Epithelial Cell Urine None Seen /hpf (Few); Urobilinogen Urine 0.2 mg/dL (<2.0); WBC Urine 0-5 /hpf (0-3); pH Urine 5.5 (5.0-9.0)
--- OUTSIDE RECORDS SUMMARY | 2024-09-16 13:46 | XMS_ITS | Referral Summary ---
Author Organization [facility] [place] [address] Address [address] [place] [address] Care Team Providers Care Software Systems Engineer Name Role Phone Suhail Dixon NP Primary Care Provider Allergies Active Allergy Reactions Criticality Noted Date Comments Lisinopril Angioedema High 06/12/2023 Medications atorvastatin (LIPITOR) 80 mg tablet Take 1 tablet (80 mg total) by mouth daily 3 Active Januvia 100 mg tablet Take 1 tablet (100 mg total) by mouth daily 3 Active Synjardy XR 25-1,000 mg tablet, IR & ER, biphasic 24hr Take 1 tablet by mouth daily 3 Active amLODIPine (NORVASC) 10 mg tablet Take 1 tablet (10 mg total) by mouth daily 3 Active glipiZIDE (GLUCOTROL) 10 mg tablet Take 1 tablet (10 mg total) by mouth 2 (two) times a day before breakfast and lunch 3 Active aspirin 81 mg enteric coated tablet Take 1 tablet (81 mg total) by mouth daily Active ezetimibe (ZETIA) 10 mg tablet Take 1 tablet (10 mg total) by mouth daily 30 tablet 11 3 Active Active Problems Problem Noted Date Diagnosed Date Claudication 05/05/2024 Hypertension associated with diabetes 04/12/2023 Mixed diabetic hyperlipidemi a associated with type 2 diabetes mellitus 04/12/2023 Abnormal stress test 04/12/2023 S/P coronary artery stent placement 04/12/2023 Hx of CABG 04/12/2023 RBBB 04/12/2023 Coronary artery disease invo lving [place] coronary artery of [place] heart without angina pectoris 08/03/2014 Social History Tobacco Use Types Packs/Day Years Used Date Smoking Tobacco: Never Smokeless Tobacco: Never Tobacco Cessation:Counseling Given: Not Answered Alcohol Use Standard Drinks/Week Comments Yes 0 (1 standard drink = 0.6 oz pur e alcohol) Sex and Gender Information Value Date Recorded Sex Assigned at Not on file 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 Gender Identity Not on file Sexual Orientation Not on file Last Filed Vital Signs Vital Sign Reading Time Taken Comments Blood Pressure 130/70 05/05/2024 10:18 AM CDT Pulse 74 05/05/2024 10:18 AM CDT Temperature - - Respiratory Rate 16 05/05/2024 10:18 AM CDT Oxygen Saturation 98% 05/05/2024 10:18 AM CDT Inhaled Oxygen Concentration - - Weight 79.4 kg (175 lb) 05/05/2024 10:18 AM CDT Height 170.2 cm (5' 7 ) 05/05/2024 10:18 AM CDT Body Mass Index 27.41 05/05/2024 10:18 AM CDT Plan of Treatment Not on file Procedures Procedure Name Priority Date/Time Associated Diagnosis Comments POCT LIPID PANEL Routine 05/05/2024 10:3 2 AM CDT Coronary artery disease involving [place] coronary artery of [place] heart without angina pectoris from Last 3 Months or Most Recently Relevant to Health Maintenance Results * POCT lipid panel (05/05/2024 10:32 AM CDT) Cholesterol, POC <100 mg/dL HDL, POC 36 mg/dL Triglycerides, POC 146 mg/dL LDL Cholesterol POC 34.8 mg/dL Chol/HDL Ratio, POC 0.0 Non-HDL Cholesterol, POC 0 mg/dL Cholesterol Total, POC <100 mg/dL Capillary blood 05/05/2024 1 0:32 AM CDT us [facility] Cintia Morris MD POINT OF CARE TEST [place]OPE[place] Final Result from Last 3 Months or Most Recently Relevant to Health Maintenance Insurance [facility] CHO[facility] PLUS [employer] PPO Care Teams Software Systems Engineer Relationship Specialty Start Date End Date Suhail Dixon NP [address] [place] [address] PCP - General Nurse Practitioner 03/26/23
--- OUTSIDE RECORDS SUMMARY | 2024-09-16 13:46 | XMS_ITS | Clinical Summary ---
Author Organization [facility] Address [address] [place] [address] Phone Care Team Providers Care Tool Repair Technician Name Role Phone Unavailable Primary Care Provider Unavailabl e Social History Tobacco Use Types Packs/Day Years Used Date Smoking Tobacco: Never Assessed Sex and Gender Information Value Date Recorded Sex Assigned at Not on file Legal Sex Male 11:56 PM CDT Gender Identity Not on file Sexual Orientation Not on file Plan of Treatment Health Maintenance Due Date Last Done Comments DTAP/TDAP/TD VACCINES (1 - Tdap) 12/09/1979 COLORECTAL SCREENING 2005 Colorectal Cancer Screening 2005 FIT-DNA Q 3 years 2005 FIT/FOBT Q 1 year 2005 Flex Sig/CT Colonography Q 5 years 2005 ZOSTER VACCINE (1 of 2) 2010 INFLUENZA VACCINE (#1) 2024 RSV VACCINE (60+ or ) (1 - 1-dose 75+ series) 12/09/2035
--- OUTSIDE RECORDS SUMMARY | 2024-09-16 13:46 | XMS_ITS | Clinical Summary ---
Author Organization [facility] [place] [address] Address [address] [place] [address] Care Team Providers Care Assistant Football Coach Name Role Phone Suhail Dixon NP Primary [...] RBBB 04/12/2023 Coronary artery disease invo lving [place] coronary artery of [place] heart without angina pectoris 08/03/2014 Surgical History Surgery Date Site/Laterality Comments HERNIA REPAIR CORONARY ARTERY BYPASS GRAFT CARDIAC CATHETERIZATION Medical History Medical History Date Comments Hx Other Medical Diabetes Type I I Heart attack (HCC) Hyperlipidemia Hypertension Diabetes mellitus (HCC) Family History Medical History Relation Name Comments Coronary artery disease Father Fami ly history of coronary artery disease - (Added by TW Conv) Emphysema Father Heart attack Father Myocardial Infa rction; Cancer Mother Coronary artery disease Mother Fami ly history of coronary artery disease - (Added by TW Conv) Heart attack Mother Myocardial Infa rction; Relation Name Status Comments Father Mother Social History Tobacco Use Types Packs/Day Years Used Date Smoking Tobacco: Never Smokeless Tobacco: Never Tobacco Cessation:Counseling Given: Not Answered Alcohol Use Standard Drinks/Week Comments Yes 0 (1 standard drink = 0.6 oz pur e alcohol) Sex and Gender Information Value Date Recorded Sex Assigned at Not on file 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 Gender Identity Not on file Sexual Orientation Not on file Obstetrics History Last Filed Vital Signs Vital Sign Reading [...] 05/05/2024 10:18 AM CDT Plan of Treatment Health Maintenance Due Date Last Done Comments Albumin Creatinine Ratio, Urine 1960 Colon Cancer Screening-Colonoscopy 1960 Depression Screening 1960 Hemoglobin A1C 1960 Hepatitis C Screening 1960 Prostate Cancer Screening-PSA 1960 eGFR 1960 Dilated Eye Exam 1960 Foot Exam 1960 DTaP/Tdap/Td Vaccine (1 - Tdap) 12/09/1971 Hepatitis B Screening 1978 Regular Well Visit/Exam 18-64 1978 Pneumococcal vaccine <65 (1 of 2 - PCV) 12/09/1979 Zoster Vaccine (1 of 2) 2010 Influenza Vaccine (#1) 2024 Lipid Panel 05/05/2025 05/05/2024, 04/12/2023 Procedures Procedure Name Priority Date/Time Associated Diagnosis Comments POCT LIPID PANEL Routine 05/05/2024 10:3 2 AM CDT Coronary artery disease involving [place] coronary artery of [place] heart without angina pectoris from Last 3 Months or Most Recently Relevant to Health Maintenance Results * POCT lipid panel (05/05/2024 10:32 AM CDT) Cholesterol, POC <100 mg/dL HDL, POC 36 mg/dL Triglycerides, POC 146 mg/dL LDL Cholesterol POC 34.8 mg/dL Chol/HDL Ratio, POC 0.0 Non-HDL Cholesterol, POC 0 mg/dL Cholesterol Total, POC <100 mg/dL Capillary blood 05/05/2024 1 0:32 AM CDT [facility] Cintia Morris MD POINT OF CARE TEST ORDPatricia LOPEZ Final Result from Last 3 Months or Most Recently Relevant to Health Maintenance Insurance [facility] PPO Care Teams Assistant Football Coach Relationship Specialty Start Date End Date Suhail Dixon NP [address] [place] [address] PCP - General Nurse Practitioner 03/26/23
--- OUTSIDE RECORDS SUMMARY | 2024-09-16 13:46 | XMS_ITS | Clinical Summary ---
Author Organization [facility] Address [address] [facility] [facility], [address] [address] Phone Care Team Providers Care Data Warehouse Developer Name Role Phone Lew Zapata MD Primary Care Provider [phone] Social History Tobacco Use Types Packs/Day Years Used Date Smoking Tobacco: Never Assessed Sex and Gender Information Value Date Recorded Sex Assigned at Not on file Legal Sex Male 12:31 AM CDT Gender Identity Not on file Sexual Orientation Not on file Plan of Treatment Health Maintenance Due Date Last Done Comments Hepatitis C Virus (HCV) Screening 1960 TdaP Immunization 1960 Cologuard 2010 Immunochemical Fecal Occult Blood 2010 Pneumococcal Immunization (5 0+ years) (1 of 1 - PCV) 2010 Zoster Immunization (1 of 2) 2010 PSA Discussion 12/09/2015 Colonoscopy 05/01/2023 05/01/2018 Colorectal Cancer Screening 05/01/2023 Influenza Immunization (#1) 2024 SARS-COV-2 Immunization ( season) 2024 Respiratory Syncytial Virus (RSV) Immunization (Adult) (1 - 1-dose 75+ series) 12/09/2035 05/01/2018 Hepatitis B Immunization Aged Out No longer eligible based on patient's age to complete this topic Meningococcal Immunization (ACWY) Aged Out No longer eligible based on patient's age to complete this topic Pneumococcal Immunization Combined Aged Out No longer eligible based on patient's age to complete this topic Rotavirus Immunization Aged Out No lo nger eligible based on patient's age to complete this topic Procedures Procedure Name Priority Date/Time Associated Diagnosis Comments COLONOSCOPY Routine 05/01/2018 from Last 3 Months or Most Recently Relevant to Health Maintenance Results * COLONOSCOPY (05/01/2018) Caesar Archer DO PROCEDURE/MINOR SURGICAL ORDERA BLES Final Result from Last 3 Months or Most Recently Relevant to Health Maintenance Insurance [facility] Care Teams Data Warehouse Developer Relationship Specialty Start Date End Date Lew Zapata MD [address] [place] [address] PCP - General Internal Medicine 03/08/18
--- OUTSIDE RECORDS SUMMARY | 2024-09-16 13:46 | XMS_ITS | Clinical Summary ---
Author Organization [facility] Address [address] [place] [address] Care Team Providers Care Director News Name Role Phone Li Infante OSCAR Primary Care Provider [phone] Social History Tobacco Use Types Packs/Day Years Used Date Smoking Tobacco: Never Assessed Sex and Gender Information Value Date Recorded Sex Assigned at Not on file Legal Sex Male 2:35 PM CDT Gender Identity Not on file Sexual Orientation Not on file Plan of Treatment Health Maintenance Due Date Last Done Comments Colorectal Cancer Screening Colonoscopy (10 Years) 1960 Annual Physical 12/09/1963 Hepatitis C 1978 DTaP, Tdap and Td Vaccines ( 1 - Tdap) 12/09/1979 Zoster Vaccines (1 of 2) 2010 COVID-19 Vaccine (2023-2 5 season) 2024 12/07/2020, 11/16/2020 Influenza Adult (#1) 2024 RSV Immunization or 60+ Years (1 - 1-dose 75+ series) 12/09/2035 Meningococcal B Vaccine Aged Out No l onger eligible based on patient's age to complete this topic Meningococcal Vaccine Aged Out No henna kehinde eligible based on patient's age to complete this topic Pneumococcal Vaccine: Pediatrics (0 to 5 Years) and At-Risk Patients (6 to 64 Years) Aged Out No longer eligible b ased on patient's age to complete this topic RSV Immunizations Under 20 Months Aged Out No longer eligible b ased on patient's age to complete this topic Insurance [employer] [address] Care Teams Director News Relationship Specialty Start Date End Date Li Infante NP [address] [place] [address] PCP - General Nurse Practitioner Family 06/11/24
[2024-09-16 16:00] LABS: Alanine Aminotransferase 33 U/L (6-50); Albumin Level 4.6 g/dL (3.5-5.1); Alkaline Phosphatase 105 U/L (38-126); Anion Gap 11 mmol/L (4-12); Aspartate Amino Transferase 37 U/L (17-59); Bilirubin,Total 1.3 mg/dL (0.2-1.3); Blood Urea Nitrogen 14 mg/dL (9-20); Calcium 9.5 mg/dL (8.4-10.2); Carbon Dioxide 24 mmol/L (22-30); Chloride 105 mmol/L (98-107); Estimated Glomerular Filt Rate > 60; Glucose 102 mg/dL (65-110); Potassium 4.5 mmol/L (3.4-5.0); Sodium 140 mmol/L (137-145)
== END 2024-09-16 12:29 | disposition home or self-care (01) ==
LOC: ANHLAB 12:29
PROVIDERS: PCP Nurse Practitioner Family; Visit Provider Nurse Practitioner Family
DX: R10.9 Unspecified abdominal pain (principal)
CPT/HCPCS: 36415; 80053; 81001; 85025; 87086

== ENCOUNTER 2024-09-17 09:06 | Outpatient (CLI) | payer OTHER, SELFPAY ==
--- NOTE | ~2024-09-17 | CT_ITS ---
EXAMINATION: CT abdomen pelvis w con DATE: 09/17/2024 09:24 INDICATION: Unspecified abdominal pain. TECHNIQUE: Computed tomography (CT) of the abdomen and pelvis was performed with 100 mL Omnipaque 350 intravenous contrast. Automated exposure control and iterative reconstruction technique were employe d. The dose-length product was 528.66 mGy-cm. COMPARISON: CT abdomen and pelvis 03/01/2022 FINDINGS: The visualized portions of the lung bases demonstrate minimal atelectasis. A calcified left lung nodule is consistent with old granulomatous disease. No pleural effusion. The heart size is nor mal. No pericardial effusion. Calcifications in the liver are consistent with old granulomatous disea se. The spleen is normal. There are gallstones in the gallbladder, which is normal in size. The pancr eas and adrenal glands are normal. There are cysts in the kidneys measuring up to 14 mm on the left. The bladder is distended. There are no dilated loops of bowel. The appendix is normal. There are no p athologically enlarged lymph nodes. There is no free intraperitoneal fluid. There is mild thoracic an d lumbar spondylosis. There is mild chronic anterior wedging of T11-L1 vertebral bodies. IMPRESSION: 1. Cholelithiasis. No evidence of acute cholecystitis. Reviewed, dictated and finalized at location B.
--- OUTSIDE RECORDS SUMMARY | 2024-09-17 09:47 | XMS_ITS | Clinical Summary ---
Author Organization [facility] Address [address] [facility] [address] [facility], [address] [address] Phone Care Team Providers Care Box Blank Machine Operator Helper Name Role Phone Lew Zapata MD Primary Care Provider [phone] Social History Tobacco Use Types Packs/Day Years [...] Most Recently Relevant to Health Maintenance Insurance [facility] Care Teams Box Blank Machine Operator Helper Relationship Specialty Start Date End Date Lew Zapata MD [address] [place] [address] PCP - General Internal Medicine 03/08/18
--- OUTSIDE RECORDS SUMMARY | 2024-09-17 09:47 | XMS_ITS | Referral Summary ---
Author Organization [facility] [address] Address [address] [place] [address] Care Team Providers Care Vision Mixer Name Role Phone Suhail Dixon NP Primary Care Provider [phone] Allergies Active Allergy Reactions Criticality Noted Date [...] RBBB 04/12/2023 Coronary artery disease invo lving [place] coronary artery of [place] heart without angina pectoris 08/03/2014 Social History Tobacco Use Types Packs/Day Years Used Date Smoking Tobacco: Never Smokeless Tobacco: Never Tobacco Cessation:Counseling Given: Not Answered Alcohol Use Standard Drinks/Week Comments Yes 0 (1 standard drink = 0.6 oz pur e alcohol) Sex and Gender Information Value Date Recorded Sex Assigned at Not on file 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 Gender Identity Not on file Sexual Orientation [...] 2 AM CDT Coronary artery disease involving [place] coronary artery of [place] heart without angina pectoris from Last 3 Months or Most Recently Relevant to Health Maintenance Results * POCT lipid panel (05/05/2024 10:32 AM CDT) Cholesterol, POC <100 mg/dL HDL, POC 36 mg/dL Triglycerides, POC 146 mg/dL LDL Cholesterol POC 34.8 mg/dL Chol/HDL Ratio, POC 0.0 Non-HDL Cholesterol, POC 0 mg/dL Cholesterol Total, POC <100 mg/dL Capillary blood 05/05/2024 1 0:32 AM CDT us [facility] Cintia Morris MD POINT OF CARE TEST ROCKY LOPEZ Final Result from Last 3 Months or Most Recently Relevant to Health Maintenance Insurance [facility] CHO[facility] PLUS [employer] PPO Care Teams Vision Mixer Relationship Specialty Start Date End Date Suhail Dixon NP [address] [place] [address] PCP - General Nurse Practitioner 03/26/23
--- OUTSIDE RECORDS SUMMARY | 2024-09-17 09:47 | XMS_ITS | Clinical Summary ---
Author Organization [facility] Address [address] [place] [address] Phone Care Team Providers Care Pilot Control Operator Name Role Phone Unavailable Primary Care Provider [...]
--- OUTSIDE RECORDS SUMMARY | 2024-09-17 09:47 | XMS_ITS | Clinical Summary ---
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 Gender Identity Not on file Sexual Orientation [...] 2 AM CDT Coronary artery disease involving [place] coronary artery of [place] heart without angina pectoris from Last 3 Months or Most Recently Relevant to Health Maintenance Results * POCT lipid panel (05/05/2024 10:32 AM CDT) Cholesterol, POC <100 mg/dL HDL, POC 36 mg/dL Triglycerides, POC 146 mg/dL LDL Cholesterol POC 34.8 mg/dL Chol/HDL Ratio, POC 0.0 Non-HDL Cholesterol, POC 0 mg/dL Cholesterol Total, POC <100 mg/dL Capillary blood 05/05/2024 1 0:32 AM CDT [facility] Cintia Morris MD POINT OF CARE TEST ORDPatricia LOPEZ Final Result from Last 3 Months or Most Recently Relevant to Health Maintenance Insurance [facility] CHO[facility] PLUS [facility] PPO Care Teams Emissions Engineer Relationship Specialty Start Date End Date Suhail Dixon NP [address] [place] [address] PCP - General Nurse Practitioner 03/26/23
== END 2024-09-17 09:07 | disposition home or self-care (01) ==
PROVIDERS: PCP Nurse Practitioner Family; Visit Provider Nurse Practitioner Family
DX: R10.9 Unspecified abdominal pain (principal); K80.20 Calculus of gallbladder without cholecystitis without obstruction
CPT/HCPCS: 74177; Q9967

== ENCOUNTER 2025-03-02 09:08 | Outpatient (CLI) | payer OTHER, SELFPAY ==
[2025-03-02 09:22] LABS: Hematocrit 43.4 % (42.0-52.0); Hemoglobin 14.6 g/dL (14.0-18.0); Immature Granulocyte Percent A 1.3 % (0-0.5); Lymphocytes Absolute Auto 1.66 K/mm3 (0.9-3.2); Mean Corpuscular HGB Conc 33.6 g/dl (32-36); Mean Corpuscular Hemoglobin 30.2 pg (26-34); Mean Corpuscular Volume 89.9 fl (80-100); Nucleated Red Blood Cells Absolute Auto 0.000 K/mm3 (0.0-0.012); Nucleated Red Blood Cells Perc 0.0 % (0.0-0.2); Platelet Count Result 141 k/mm3 (150-375); Red Blood Count 4.83 M/mm3 (4.6-6.20); White Blood Count 7.7 K/mm3 (4.5-10.0)
[2025-03-02 09:35] LABS: Hemoglobin A1C 6.9 % (<5.7)
--- OUTSIDE RECORDS SUMMARY | 2025-03-02 09:41 | XMS_ITS | Clinical Summary ---
Author Organization [facility] Address [address] [place] [address] Phone Care Team Providers Care Repairer Resistance Welding Machines Name Role Phone Unavailable Primary Care Provider [...] (1 of 2) 2010 INFLUENZA VACCINE (#1) 2025 RSV VACCINE (60+ or ) (1 - 1-dose 75+ series) 12/09/2035
--- OUTSIDE RECORDS SUMMARY | 2025-03-02 09:41 | XMS_ITS | Clinical Summary ---
Author Organization [facility] [address] Address [address] [place] [address] Care Team Providers Care Rubber Flap Tuber Machine Operator Name Role Phone Suhail Dixon NP Primary Care Provider [phone] Allergies Active Allergy Reactions Criticality Noted Date [...] total) by mouth daily 30 tablet 11 5 12/05/19 26 Active Active Problems Problem Noted Date Diagnosed Date Claudication 05/05/2024 Hypertension associated with diabetes 04/12/2023 Mixed diabetic hyperlipidemi a associated with type 2 diabetes mellitus 04/12/2023 Abnormal stress test 04/12/2023 S/P coronary artery stent placement 04/12/2023 Hx of CABG 04/12/2023 RBBB 04/12/2023 Coronary artery disease invo lving [place] coronary artery of [place] heart without angina pectoris 08/03/2014 Surgical History [...] on file Legal Sex Male 2:07 AM 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 HAND Gender Identity Not on file Sexual Orientation [...] 10:18 AM CDT Height 170.2 cm (5' 7) 05/05/2024 10:18 AM CDT Body Mass Index [...] (1 of 2) 2010 Influenza Vaccine (#1) 2025 Lipid Panel 05/05/2025 05/05/2024, 04/12/2023 Procedures Procedure Name Priority Date/Time Associated Diagnosis Comments POCT LIPID PANEL Routine 05/05/2024 10:3 2 AM CDT Coronary artery disease involving [place] coronary artery of [place] heart without angina pectoris from Last 3 Months or Most Recently Relevant to Health Maintenance Results * POCT lipid panel (05/05/2024 10:32 AM CDT) Cholesterol, POC <100 mg/dL HDL, POC 36 mg/dL Triglycerides, POC 146 mg/dL LDL Cholesterol POC 34.8 mg/dL Chol/HDL Ratio, POC 0.0 Non-HDL Cholesterol, POC 0 mg/dL Cholesterol Total, POC <100 mg/dL Capillary blood 05/05/2024 1 0:32 AM CDT [facility] Cintia Morris MD POINT OF CARE TEST ORDPatricia LOPEZ Final Result from Last 3 Months or Most Recently Relevant to Health Maintenance Insurance [facility] CHOICE PLUS [facility] HMO/PPO Address: [facility] [address] [place] [address] [facility] PPO [facility] CHOICE PLUS [facility] HMO/PPO Address: [facility] [address] [place] [address] [facility] PPO Care Teams Rubber Flap Tuber Machine Operator Relationship Specialty Start Date End Date Suhail Dixon NP [address] [place] [address] PCP - General Nurse Practitioner 03/26/23
--- OUTSIDE RECORDS SUMMARY | 2025-03-02 09:41 | XMS_ITS | Clinical Summary ---
Author Organization [facility] Address [address] [facility], [address] [address] Phone Care Team Providers Care Ratoprinter Name Role Phone Lew Zapata MD Primary Care Provider [phone] Social History Tobacco Use Types Packs/Day Years Used Date Smoking Tobacco: Never Assessed Sex and Gender Information Value Date Recorded Sex Assigned at Not on file Legal Sex Male 12:31 AM CDT Gender Identity Not on file Sexual Orientation Not on file Plan of Treatment Health Maintenance Due Date Last Done Comments Hepatitis C Virus (HCV) Screening 1960 TdaP Immunization 1960 Cologuard 2005 Immunochemical Fecal Occult Blood 2005 Pneumococcal Immunization (5 0+ years) (1 of 1 - PCV) 2010 Zoster Immunization (1 of 2) 2010 Colonoscopy 05/01/2023 05/01/2018 Colorectal Cancer Screening 05/01/2023 SARS-COV-2 Immunization ( - season) 2024 Influenza Immunization (#1) 2025 Respiratory Syncytial Virus (RSV) Immunization (Adult) (1 - 1-dose 75+ series) 12/09/2035 Hepatitis B Immunization Aged Out No longer eligible based on patient's age to complete this topic Human Papillomavirus (HPV) Immunization Aged Out No longer eligible b ased on patient's age to complete this topic Meningococcal Immunization (ACWY) Aged Out No longer eligible based on patient's age to complete this topic Rotavirus Immunization Aged Out No lo nger eligible based on patient's age to complete this topic Procedures Procedure Name Priority Date/Time Associated Diagnosis Comments HM COLONOSCOPY Routine 05/01/2018 from Last 3 Months or Most Recently Relevant to Health Maintenance Results * COLONOSCOPY (05/01/2018) Caesar Bulmaro Suzi DO PROCEDURE/MINOR SURGICAL ORDERA BLES Final Result from Last 3 Months or Most Recently Relevant to Health Maintenance Insurance Care Teams Ratoprinter Relationship Specialty Start Date End Date Lew Zapata MD PCP - General Internal Medicine 03/08/18
[2025-03-02 09:43] LABS: Alanine Aminotransferase 31 U/L (6-50); Albumin Level 3.9 g/dL (3.5-5.1); Alkaline Phosphatase 119 U/L (38-126); Anion Gap 6 mmol/L (4-12); Aspartate Amino Transferase 29 U/L (17-59); Bilirubin,Total 1.0 mg/dL (0.2-1.3); Blood Urea Nitrogen 20 mg/dL (9-20); Calcium 9.2 mg/dL (8.4-10.2); Carbon Dioxide 24 mmol/L (22-30); Chloride 105 mmol/L (98-107); Cholesterol 101 mg/dL (0-200); Estimated Glomerular Filt Rate > 60; Glucose 147 mg/dL (65-110); HDL Direct 43 mg/dL; Potassium 4.4 mmol/L (3.4-5.0); Sodium 135 mmol/L (137-145); Total Protein 6.2 g/dL (6.3-8.2); Triglycerides 123 mg/dL (<150)
[2025-03-02 10:18] LABS: Prostate Specific Antigen 0.3 ng/mL (< OR = 4.0)
[2025-03-02 10:37] LABS: MALB Creatinine Ratio > 3123.3 mg/g (0-30)
== END 2025-03-02 09:09 | disposition home or self-care (01) ==
LOC: ANHLAB 09:09
PROVIDERS: PCP Nurse Practitioner Family; Visit Provider Nurse Practitioner Family
DX: E13.329 Other specified diabetes mellitus with mild nonproliferative diabetic retinopathy without macular edema (principal); I10 Essential (primary) hypertension; I25.10 Atherosclerotic heart disease of native coronary artery without angina pectoris
CPT/HCPCS: 36415; 80053; 80061; 82043; 83036; 84153; 85025; G0103

== ENCOUNTER 2025-04-15 13:32 | Outpatient (CLI) | payer OTHER, SELFPAY ==
--- NOTE | ~2025-04-15 | US_ITS ---
COMPARISON: [None.] FINDINGS: The right kidney measures 12.7 x 7.2 x 4.1 cm. The left kidney measures 12.7 x 6.9 x 5.3 cm. Renal contour and echotexture are unremarkable. Left renal cyst measures 1.6 x 1.1 x 1.5 cm .There is no hydronephrosis. The bladder is unremarkable. IMPRESSION: No hydronephrosis is evident. Normal appearing bladder. Reviewed, dictated and finalized at location S.
== END 2025-04-15 13:33 | disposition home or self-care (01) ==
PROVIDERS: PCP Nurse Practitioner Family; Visit Provider Nurse Practitioner Family
DX: R80.9 Proteinuria, unspecified (principal)
CPT/HCPCS: 76770